=== PATIENT | female | born 1950 | race Caucasian/White ===

== ENCOUNTER 2023-10-03 11:59 | Day surgery (SDC) | payer MEDICARE, SELFPAY ==
[2023-10-03] VITALS (11 sets, daily range): BP systolic 84–130; BP diastolic 42–82
--- NOTE | 2023-10-03 13:49 | ITS.CL.CATH ---
[facility] - Catheterization
Cardiac Catheterization
Procedure Report:
CARDIAC CATHETERIZATION REPORT
Date of Procedure: 10/03/2023
Referring: Anthony Penny DO
Indication: Exertional dyspnea with abnormal stress test
HEMODYNAMIC DATA
AO: 146/68
LV: 157/19
There is a mean gradient of 12 mmHg across the aortic valve consistent with mild aortic stenosis
LEFT VENTRICULOGRAPHY: Normal left ventricular wall motion with EF 63%
CORONARY ANGIOGRAPHY
Dominance: Co-dominant
Left Main: Normal
LAD: 40% mid LAD stenosis distal to the takeoff of D1 and S1. There is a second area of smooth 40-50% stenosis in the mid to distal LAD. There is 50% stenosis in the LAD at the LV apex and the LAD wraps the apex to supply the distal inferior wall.
Circumflex: The circumflex has 20% mid stenosis spanning the takeoff of OM 3 which is the largest obtuse marginal branch. OM1 and OM 2 are small. OM 3 has 20-30% proximal stenosis. The large left posterolateral branch is occluded just distal to
its takeoff and just proximal to a long stented segment. There is retrograde filling of this branch via left to left collaterals to the stented segment. The long stented segment itself is occluded. The circumflex terminates with a small
posterolateral branch and what appears to be a very small LPDA.
RCA: The RCA is proximally occluded at the origin of the stented segment. This is a long segment occlusion. There are wispy [id number] collaterals to the distal RCA branches. My suspicion is that the RCA probably terminated with a small
codominant RPDA
Closure Device: None-the procedure was performed via the right radial artery. The Mir's test was normal prior to the procedure.
Radiation (mGy): 267
DAP (cm2.Gy): 19.9
Fluoroscopy time: 5.2 minutes
CONCLUSIONS
1: Mild aortic stenosis with mean gradient 12 mmHg
2: Normal left ventricular function with EF 63%
3. Multivessel CAD as described. The mid LAD disease is mild to moderate in severity. The previously stented segment in the large left posterolateral branch is occluded throughout the stent. There is some retrograde filling of this vessel via
left to left collaterals. The RCA is proximally occluded with faint wispy collaterals to the distal branches.
4. There is no target for intervention in the circumflex or RCA. The LAD disease is mild to moderate in severity. Recommend continued medical therapy for the residual CAD and continued aggressive risk factor modification efforts
Copy to: Anthony Penny DO, Ivan Garber MD
Al Bal MD, [facility], [facility]
[2023-10-03] MEDS: NSS 1000 IV ×2 (15:45→15:46)
== END 2023-10-03 17:30 | disposition home or self-care (01) ==
LOC: CATH 11:59
PROVIDERS: ATTENDING PHYSICIAN Internal Medicine Cardiovascular Disease; FAMILY PHYSICIAN Family Medicine
DX: I25.10 Atherosclerotic heart disease of native coronary artery without angina pectoris (principal); R94.39 Abnormal result of other cardiovascular function study; R06.09 Other forms of dyspnea; I35.0 Nonrheumatic aortic (valve) stenosis; Z95.5 Presence of coronary angioplasty implant and graft; Z79.82 Long term (current) use of aspirin; Z79.02 Long term (current) use of antithrombotics/antiplatelets
CPT/HCPCS: 93458; Q9967